=== PATIENT | female | born 2000 | race Two or more races ===

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

== ENCOUNTER → 2019-11-02 | Outpatient (CLI) | payer OTHER ==
--- NOTE | 2019-11-02 13:50 | RAD ---
INDICATION: Reason: Irregular Menses / Spl. Instructions: / History: COMPARISON: None. TECHNIQUE: Grayscale and color ultrasound images uterus and adnexa. The patient declined transvaginal imaging therefore transabdominal only was obtained. FINDINGS: Uterus: 75 x 45 x 31 mm. Endometrial Stripe: 2 mm. Right Ovary: 28 x 22 x 19 mm. Left Ovary: 35 x 30 x 24 mm. Vascular flow identified to bilateral ovaries. IMPRESSION: * Vascular flow seen to be ovaries. * No significant thickening of the endometrial stripe with morphologically unremarkable uterus. Electronically signed by: Korey Samayoa MD (11/02/2019 1:47 PM) [id number]
== END | disposition home or self-care (01) ==
LOC: US 12:27
PROVIDERS: ATTEND Nurse Practitioner Gerontology
DX: N92.6 Irregular menstruation, unspecified (principal); L83 Acanthosis nigricans
CPT/HCPCS: 76856